=== PATIENT | female | born 1970 | race Caucasian/White ===

== ENCOUNTER 2020-06-10 09:29 | Day surgery (SDC) | payer OTHER, SELFPAY ==
[~2020-06-10] VITALS: Ht 157.5 cm; Wt 73.0 kg
[2020-06-10 10:15] LABS: HCG,QUAL RESULT NEGATIVE (NEGATIVE)
[2020-06-10] MEDS ORDERED: NS IRRIG SOLN 1000 ML IR ONE (11:34)
[2020-06-10] MEDS ORDERED: LR 1,000 ML IV.SOLN IV ONE ×2 (11:34)
[2020-06-10] MEDS ORDERED: PROPOFOL 200MG/ 20ML VIAL (DIPRIVAN) IV ONE (11:34)
[2020-06-10] MEDS ORDERED: ONDANSETRON HCL 4 MG/2 ML VIAL IVP ONE (11:34)
[2020-06-10] MEDS ORDERED: fentaNYL CITRATE/PF 100 MCG/2 ML AMP IVP ONE (11:34)
[2020-06-10] MEDS ORDERED: METOCLOPRAMIDE HCL 10 MG/2 ML VIAL IVP ONE (11:34)
[2020-06-10] MEDS ORDERED: NS 1000 ML IV.SOLN IV ONE (11:34)
[2020-06-10] MEDS ORDERED: GLYCOPYRROLATE 0.2 MG/ML VIAL IJ ONE (11:34)
[2020-06-10] MEDS ORDERED: LIDOCAINE 1% 10 MG/ML, 20 ML MDV IM ONE (11:34)
[2020-06-10] MEDS ORDERED: MIDAZOLAM HCL 5 MG/5 ML VIAL IVP ONE (11:34)
[2020-06-10] MEDS ORDERED: SEVOFLURANE 15 MIN GAS INH ONE (11:34)
[2020-06-10] MEDS ORDERED: HYDROmorphone 1 MG INJ. 1 MG/ML CARTRIDGE IVP PRN ×2 (12:30)
[2020-06-10] MEDS ORDERED: ONDANSETRON HCL 4 MG/2 ML VIAL IVP PRN (12:30)
[2020-06-10] MEDS ORDERED: KETOROLAC TROMETHAMINE 30 MG VIAL IVP PRN ×3 (12:30)
[2020-06-10] MEDS ORDERED: LR 1,000 ML IV SCH (12:30)
[2020-06-10] MEDS ORDERED: KETOROLAC TROMETHAMINE 30 MG VIAL ONE (12:52)
[2020-06-10 14:22] VITALS: BP_SYST 124
== END 2020-06-10 14:10 | disposition home or self-care (01) ==
LOC: SDS 09:29 → SMU 09:31 → SDS 14:10
PROVIDERS: ATTEND Obstetrics & Gynecology
DX: N92.0 Excessive and frequent menstruation with regular cycle (principal); I10 Essential (primary) hypertension; Z20.828 Contact with and (suspected) exposure to other viral communicable diseases
CPT/HCPCS: 36415; 58563; 84703; 86886; 86900; 86901; J1885; J2001; J2250; J2405; J2704; J2765; J3010; J3490; J7030; J7120; U0003